=== PATIENT | female | born 1985 | race African-American/Black ===

== ENCOUNTER 2017-08-07 08:05 | Day surgery (SDC) | payer BC ==
[~2017-08-07 08:05] MED LIST: Buffered Lidocaine 0.9% SYRIN* 5 ML/SYR SYRINGE INTRADERM ONE
[2017-08-07] MEDS ORDERED: ceFAZolin 2 GM PREMIX (*) 2 GM/50 ML BAG IVPB ONE (08:18)
[2017-08-07] MEDS ORDERED: Midazolam* 1 MG/ML 5 ML VIAL (5 MG) ONE (08:30)
[2017-08-07] MEDS ORDERED: fentaNYL* 50 MCG/ML 2 ML VIAL (100 MCG VIAL) ONE (08:30)
[2017-08-07] MEDS ORDERED: Bupivacaine 0.25% SDV* 30 ML ONE (08:48)
[2017-08-07] MEDS ORDERED: Ondansetron INJ* 2 MG/ML VIAL IV PRN (09:00)
[2017-08-07] MEDS ORDERED: Naloxone* 0.4 MG/ML 1 ML VIAL IV PRN (09:00)
[2017-08-07] MEDS ORDERED: Acetaminophen TAB* 325 MG PO PRN (09:00)
[2017-08-07] MEDS ORDERED: fentaNYL* 50 MCG/ML 2 ML VIAL (100 MCG VIAL) IV PRN (09:00)
[2017-08-07] MEDS ORDERED: Dexamethasone IV* 4 MG/ML 1 ML (4 MG) ONE (10:29)
[2017-08-07] MEDS ORDERED: Ondansetron INJ* 2 MG/ML VIAL ONE (10:29)
[2017-08-07] MEDS ORDERED: DiMENhydriNATE IV* 50 MG/ML VIAL ONE (10:29)
[2017-08-07] MEDS ORDERED: Propofol* 10 MG/ML 20 ML BTL IV PUSH ONE ×2 (10:29→10:40)
[2017-08-07] MEDS ORDERED: Lidocaine 2% PF * 5 ML VIAL ONE (10:29)
[2017-08-07] MEDS ORDERED: Ketorolac INJ* 30 MG/ML 1 ML VIAL ONE (10:29)
[2017-08-07 11:46] VITALS: BP 104/64
--- NOTE | 2017-08-07 16:54 | OP ---
Operative Report - Blank - Operative Report Date of Operation: 08/07/17 Note: DATE OF OPERATION: 08/07/2017 - [facility] DATE OF : 1985 SURGEON: Varghese Hernandez MD. ASSISTANTS: SILVIA Arredondo ANESTHESIOLOGIST: Dr. Butler. ANESTHESIA: General. PRE-OP DIAGNOSES: 1. Left volar wrist ganglion cyst. POST-OP DIAGNOSES: 1. Left volar wrist ganglion cyst. OPERATIVE PROCEDURE: 1. Excision of left volar wrist ganglion cyst. INDICATIONS: Li is 32. She has a volar wrist ganglion. We talked about risks and benefits. The patient had wanted to proceed with surgery. ESTIMATED BLOOD LOSS: 2 mL. COMPLICATIONS: None. FINDINGS: The ganglion emanated from the volar wrist joint. DESCRIPTION OF PROCEDURE: Li was seen in the preoperative holding area. The correct site and side of the procedure were identified. We came back to the operating room. We had a time-out. The arm was exsanguinated with the Esmarch and the tourniquet was inflated to 250 mmHg. I then made a lazy-S incision over the area of the volar wrist ganglion cyst. Dissection was carried down. The radial artery was mobilized and retracted radially. The cyst was then excised via marginal excision, it was coming off the volar aspect of the wrist joint. The area was cauterized, had a relatively broad area of origin. This was all cauterized. The wound was irrigated out and skin was closed with 4-0 Monocryl and Steri-Strips. Wounds were dressed and a Cock-Up wrist splint was applied. Tourniquet was deflated and she was taken to the recovery room in stable condition.
== END 2017-08-07 11:57 | disposition home or self-care (01) ==
LOC: OREAST 08:05
PROVIDERS: ATTEND Orthopaedic Surgery Hand Surgery
DX: M67.432 Ganglion, left wrist (principal); F41.8 Other specified anxiety disorders; D64.9 Anemia, unspecified
CPT/HCPCS: 81025; 88304; J0690; J1100; J1240; J1885; J2250; J2405; J2704; J3010